=== PATIENT | female | born 1980 | race Two or more races ===

== ENCOUNTER 2018-12-12 09:48 | Emergency (ER) | payer OTHER ==
[2018-12-12 10:05] VITALS: BP 117/81; PULSE 83; TEMP 98.3; BMI 31.2
--- NOTE | 2018-12-12 10:39 | PDOC ---
History of Present Illness - General Chief Complaint: Pain Stated Complaint: PELVIC PAIN Time Seen by Provider: 12/12/18 10:08 - History of Present Illness Initial Comments: 12/12/18 10:36 CHIEF COMPLAINT: pelvic pain HISTORY OF PRESENT ILLNESS: 38 yo F with hx of migraines and kidney stones presents to fast track with left sided pelvic pain x 1 week. Patient reports urinary discomfort and frequency. Patient reports nausea but denies any vomiting or diarrhea. No recent travel or sick contacts. PAST MEDICAL HISTORY: Denies past medical history FAMILY HISTORY: Denies SOCIAL HISTORY:Denies tobacco, alcohol, illicit drug use. SURGICAL HISTORY: ALLERGIES: morphine REVIEW OF SYSTEMS General/Constitutional: Denies fever or chills. Denies weakness, weight change. HEENT: Denies change in vision. Denies ear pain or discharge. Denies sore throat. Cardiovascular: Denies chest pain or shortness of breath. Respiratory: Denies cough, wheezing, or hemoptysis. Gastrointestinal: Denies nausea, vomiting, diarrhea or constipation. Denies rectal bleeding. Genitourinary: L pelvic pain x 1 week. Dysuria, urinary frequency. Musculoskeletal: Denies joint or muscle swelling or pain. Denies neck or back pain. Skin and breasts: Denies rash or easy bruising. Neurologic: Denies headache, vertigo, loss of consciousness, or loss of sensation. PHYSICAL EXAM General Appearance: Well-appearing, appropriately dressed. No apparent distress , no intoxication. HEENT: EOMI, PERRLA, normal ENT inspection, normal voice, TMs normal, pharynx normal. No conjunctival pallor. No photophobia, scleral icterus. Neck: Supple. Trachea midline. No tenderness, rigidity, carotid bruit, stridor , lymphadenopathy, or thyromegaly. Respiratory/Chest: Lungs CTAB. No shortness of breath, chest tenderness, respiratory distress, accessory muscle use. No crackles, rales, rhonchi, stridor , wheezing, dullness Cardiovascular: RRR. S1, S2. No JVD, murmur, bradycardia, tachycardia. Vascular Pulses: Dorsalis-Pedis (R): 2+, Dorsalis-Pedis (L): 2+ Gastrointestinal/Abdominal: Tenderness to LLQ on palpation. Normal bowel sounds. Abdomen soft, non-distended. No organomegaly, pulsatile mass, guarding, hernia, hepatomegaly, splenomegaly. Musculoskeletal/Extremities: Normal inspection. FROM of all extremities, normal capillary refill. Pelvis Stable. No CVA tenderness. No tenderness to extremities, pedal edema, swelling, erythema or deformity. Integumentary: Appropriate color, dry, warm. 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 Fully oriented, alert. Appropriate mood/affect. Motor strength 5/5. No appreciable EOM palsy, facial droop or sensory deficit. 12/12/18 10:50 Past History - Past Medical History Allergies/Adverse Reactions: Allergies Allergy/AdvReac Type Severity Reaction Status Date / Time morphine Allergy Verified 12/12/18 09:58 Home Medications: Ambulatory Orders Diclofenac Sodium 75 mg PO BID #20 tablet. 12/12/18 Asthma: Yes COPD: No Diabetes: Yes Kidney Stones: Yes Other medical history: migraines - Surgical History Cholecystectomy: Yes - Psycho Social/Smoking Cessation Hx Smoking History: Current every day smoker Have you smoked in the past 12 months: Yes Number of Cigarettes Smoked Daily: 4 Information on smoking cessation initiated: No Hx Alcohol Use: No Drug/Substance Use Hx: No *Physical Exam - Vital Signs Last Vital Signs Temp Pulse Resp BP Pulse Ox 98.3 F 83 18 117/81 98 12/12/18 10:00 12/12/18 10:00 12/12/18 10:00 12/12/18 10:00 12/12/18 10:00 Medical Decision Making - Medical Decision Making 12/12/18 10:38 38 yo F with hx of migraines and kidney stones presents to fast track with left sided pelvic pain x 1 week. -UA, Ucx, upreg -TVUS 12/12/18 12:04 Pending US results, called US who reports that the US has been done an uploaded , awaiting read. Discharge - Discharge Information Problems reviewed: Yes Clinical Impression/Diagnosis: Pelvic pain Condition: Stable Disposition: HOME - Admission No - Additional Discharge Information Prescriptions: Diclofenac Sodium 75 mg PO BID #20 tablet. - Follow up/Referral Referrals: Eleonora Anthony MD [Staff Physician] - - Patient Discharge Instructions Patient Printed Discharge Instructions: DI for Pelvic Pain Additional Instructions: Please take medications as prescribed. Follow up with OBGYN for further evaluation and management of your pelvic pain. If you develop sudden, worsening pain, vomiting, unusual vaginal bleeding, or any new or worsening symptoms, please return to the ER. - Post Discharge Activity
[2018-12-12 10:47] LABS: URINE APPEARANCE CLEAR; URINE BILIRUBIN NEGATIVE (NEGATIVE); URINE COLOR YELLOW; URINE GLUCOSE (UA) NEGATIVE (NEGATIVE); URINE KETONE NEGATIVE (NEGATIVE); URINE LEUK ESTERASE NEGATIVE (NEGATIVE); URINE NITRITE NEGATIVE (NEGATIVE); URINE PROTEIN NEGATIVE (NEGATIVE); URINE UROBILINOGEN 0.2 mg/dL (0.2-1.0)
[2018-12-12] MEDS ORDERED: KETOROLAC TROMETHAMINE 30 MG/1 ML VIAL IM ONE (13:11)
[2018-12-12] MEDS ORDERED: KETOROLAC TROMETHAMINE 30 MG/1 ML VIAL ONE (13:18)
== END 2018-12-12 14:30 | disposition home or self-care (01) ==
LOC: JERFT 09:48
PROC: 3E0233Z Introduction of Anti-inflammatory into Muscle, Percutaneous Approach (ICD-10-PCS; principal; 2018-12-12)
DX: R10.2 Pelvic and perineal pain (principal); Z87.442 Personal history of urinary calculi; E11.9 Type 2 diabetes mellitus without complications; J45.909 Unspecified asthma, uncomplicated; Z86.69 Personal history of other diseases of the nervous system and sense organs; Z88.5 Allergy status to narcotic agent
CPT/HCPCS: 76830-TC; 81003; 84703; 87086; 96372; 99281-25

== ENCOUNTER 2020-03-17 16:33 | Emergency (ER) | payer OTHER ==
[2020-03-17 16:43] VITALS: TEMP 97.7; BMI 27.3
[2020-03-17] MEDS ORDERED: ACETAMINOPHEN 325 MG TABLET (FP) PO ONE (16:44)
[2020-03-17] MEDS ORDERED: SODIUM CHLORIDE 1,000 ML IV STA (16:44)
[2020-03-17] MEDS ORDERED: ACETAMINOPHEN 325 MG TABLET (FP) ONE (16:47)
[2020-03-17 18:37] LABS: BASO % 0.4 % (0-2.0); EOS % 2.1 % (0-4.5); HEMATOCRIT 42.1 % (32.4-45.2); HEMOGLOBIN 14.4 GM/dL (10.7-15.3); LYMPH % 41.8 % (8-40); MCH 31.8 pg (25.7-33.7); MCHC 34.2 g/dl (32.0-36.0); MEAN CELL VOLUME 93.1 fl (80-96); MEAN PLT VOLUME 9.7 fl (7.5-11.1); MONO % 4.1 % (3.8-10.2); NEUT % 51.6 % (42.8-82.8); PLATELET COUNT 224 K/MM3 (134-434); RBC 4.53 M/mm3 (3.60-5.2); RDW 13.1 % (11.6-15.6); WHITE BLOOD COUNT 6.8 K/mm3 (4.0-10.0)
[2020-03-17 18:45] LABS: EPI CELLS 10 /uL (0-25.1); HYALINE CASTS 1 /uL (0-3.1); URINE APPEARANCE CLOUDY; URINE BACTERIA 56 /uL (0-1359); URINE BILIRUBIN NEGATIVE (NEGATIVE); URINE COLOR ORANGE; URINE GLUCOSE (UA) NEGATIVE (NEGATIVE); URINE KETONE NEGATIVE (NEGATIVE); URINE LEUK ESTERASE NEGATIVE (NEGATIVE); URINE NITRITE NEGATIVE (NEGATIVE); URINE PROTEIN 2+ (NEGATIVE); URINE RBC 4873 /uL (0-23.9); URINE UROBILINOGEN 0.2 mg/dL (0.2-1.0); URINE WBC 27 /uL (0-25.8)
[2020-03-17] MEDS ORDERED: KETOROLAC TROMETHAMINE 30 MG/1 ML VIAL IVPUSH ONE (18:51)
[2020-03-17] MEDS ORDERED: KETOROLAC TROMETHAMINE 30 MG/1 ML VIAL ONE (18:53)
[2020-03-17 20:59] LABS: POTASSIUM 3.7 mmol/L (3.5-5.1)
[2020-03-17 21:05] LABS: ALBUMIN 4.4 g/dl (3.4-5.0)
[2020-03-17 21:06] LABS: CREATININE 0.9 mg/dL (0.55-1.3)
[2020-03-17 21:07] LABS: BILIRUBIN,TOTAL 0.3 mg/dL (0.2-1); TOT PROT 7.6 g/dl (6.4-8.2)
[2020-03-17] MEDS ORDERED: TAMSULOSIN HCL 0.4 MG CAP PO ONE (21:51)
[2020-03-17 21:56] LABS: CALCIUM 8.9 mg/dL (8.5-10.1)
[2020-03-17] MEDS ORDERED: TAMSULOSIN HCL 0.4 MG CAP ONE (21:57)
[2020-03-17 22:02] LABS: BLOOD UREA NITROGEN 14.1 mg/dL (7-18)
[2020-03-17 22:43] VITALS: BP 131/78; PULSE 70
== END 2020-03-17 23:15 | disposition home or self-care (01) ==
LOC: JER 16:33
PROC: 3E0333Z Introduction of Anti-inflammatory into Peripheral Vein, Percutaneous Approach (ICD-10-PCS; principal; 2020-03-17)
PROC: 3E0337Z Introduction of Electrolytic and Water Balance Substance into Peripheral Vein, Percutaneous Approach (ICD-10-PCS; 2020-03-17)
DX: R10.2 Pelvic and perineal pain (principal); N20.0 Calculus of kidney; N83.202 Unspecified ovarian cyst, left side
CPT/HCPCS: 36415; 74176-TC; 76830-TC; 80053; 81003; 84703; 85025; 99285-25

== ENCOUNTER 2021-06-02 08:27 | Emergency (ER) | payer OTHER ==
[2021-06-02 08:42] VITALS: BP 143/102; PULSE 86; TEMP 98.2; BMI 28.3
[2021-06-02] MEDS ORDERED: ACETAMINOPHEN 1000 MG/100 ML BAG IVPB ONE (09:55)
[2021-06-02] MEDS ORDERED: SODIUM CHLORIDE 0.9% 500 ML INFUS.BAG IV ONE (09:55)
[2021-06-02] MEDS ORDERED: DEXAMETHASONE SOD PHOSPHATE 10 MG/1 ML VIAL IVPUSH ONE (09:55)
[2021-06-02] MEDS ORDERED: METOCLOPRAMIDE HCL INJECTION 10 MG/2 ML VIAL IVPUSH ONE (09:55)
[2021-06-02] MEDS ORDERED: DEXAMETHASONE SOD PHOSPHATE 10 MG/1 ML VIAL ONE (10:11)
[2021-06-02] MEDS ORDERED: METOCLOPRAMIDE HCL INJECTION 10 MG/2 ML VIAL ONE (10:11)
[2021-06-02] MEDS ORDERED: ACETAMINOPHEN INJECTION 100 ML IVPB ONE (10:12)
[2021-06-02 11:01] LABS: BASO % 0.6 % (0-2.0); EOS % 0.8 % (0-4.5); HEMATOCRIT 42.6 % (32.4-45.2); HEMOGLOBIN 14.3 GM/dL (10.7-15.3); LYMPH % 27.1 % (8-40); MCH 30.9 pg (25.7-33.7); MCHC 33.5 g/dl (32.0-36.0); MEAN CELL VOLUME 92.2 fl (80-96); MEAN PLT VOLUME 9.1 fl (7.5-11.1); MONO % 4.3 % (3.8-10.2); NEUT % 67.2 % (42.8-82.8); PLATELET COUNT 248 10^3/uL (134-434); RBC 4.62 M/mm3 (3.60-5.2); RDW 12.9 % (11.6-15.6); WHITE BLOOD COUNT 8.4 K/mm3 (4.0-10.0)
[2021-06-02 11:03] LABS: ALBUMIN 3.8 g/dl (3.4-5.0)
[2021-06-02 11:04] LABS: BLOOD UREA NITROGEN 9.3 mg/dL (7-18)
[2021-06-02 11:06] LABS: CREATININE 0.9 mg/dL (0.55-1.3)
[2021-06-02 11:08] LABS: BILIRUBIN,TOTAL 0.4 mg/dL (0.2-1)
[2021-06-02] MEDS ORDERED: KETOROLAC TROMETHAMINE 30 MG/1 ML VIAL IVPUSH ONE (13:04)
[2021-06-02] MEDS ORDERED: KETOROLAC TROMETHAMINE 15 MG/ML VIAL IVPUSH ONE (13:12)
[2021-06-02] MEDS ORDERED: KETOROLAC TROMETHAMINE 15 MG/ML VIAL ONE (13:31)
== END 2021-06-02 15:08 | disposition home or self-care (01) ==
LOC: JER 08:27
PROC: 3E0333Z Introduction of Anti-inflammatory into Peripheral Vein, Percutaneous Approach (ICD-10-PCS; principal; 2021-06-02)
PROC: 3E033GC Introduction of Other Therapeutic Substance into Peripheral Vein, Percutaneous Approach (ICD-10-PCS; 2021-06-02)
PROC: 3E0333Z Introduction of Anti-inflammatory into Peripheral Vein, Percutaneous Approach (ICD-10-PCS; 2021-06-02)
PROC: 3E033GC Introduction of Other Therapeutic Substance into Peripheral Vein, Percutaneous Approach (ICD-10-PCS; 2021-06-02)
DX: M54.2 Cervicalgia (principal)
CPT/HCPCS: 36415; 70450-TC; 70496-TC; 72126-TC; 80053; 82962; 84703; 85025; 99285-25; J1100; Q9967